=== PATIENT | male | born 1940 | race African-American/Black ===

== ENCOUNTER → 2022-12-24 08:11 | Outpatient (CLI) | payer MEDICARE, OTHER, SELFPAY ==
--- NOTE | 2022-12-24 | DI.NM.S_ITS ---
PROCEDURE: NM UPTAKE AND SCAN RADIOPHARMACEUTICAL: 373 ?Ci I-123 sodium iodide by mouth. INDICATIONS: Thyrotoxicosis, unspecified without thyrotoxic cri TECHNIQUE: I-123 sodium iodide was administered orally. Anterior neck images were obtained, and iodine uptake by the thyroid gland calculated using head of cytogenetics's software. COMPARISON: None. FINDINGS: Morphology: The thyroid gland has normal morphology and uniform activity. Hypermetabolic focus within the left superior thyroid. Uptake: 6 hour thyroid uptake is 12% ; normal ranges are from 6-18%. 24 hour thyroid uptake is 32% ; normal ranges are from 10-30%. IMPRESSION: 1. Normal thyroid uptake. 2. There is a hypermetabolic focus within the left superior thyroid. Dictated by: Radha Salinas M.D. on 12/25/2022 at 13:28 Approved by: Radha Salinas M.D. on 12/25/2022 at 13:29
== END ==
PROVIDERS: Referring Provider Internal Medicine; Visit Provider Internal Medicine
DX: E05.90 Thyrotoxicosis, unspecified without thyrotoxic crisis or storm (principal)
CPT/HCPCS: 78014; A9516